=== PATIENT | female | born 1990 | race Caucasian/White ===

== ENCOUNTER 2019-03-26 14:29 | Emergency (ER) | payer OTHER ==
[2019-03-26 14:34] VITALS: BP 103/58; PULSE 68; TEMP 98; BMI 22.6
[2019-03-26] MEDS ORDERED: IBUPROFEN 600 MG TABLET (FP) PO ONE ×2 (14:54→16:14)
[2019-03-26] MEDS ORDERED: DIPHTH,PERTUSS(ACELL),TET 0.5 ML DISP.SYRIN IM ONE ×2 (14:54→16:14)
--- NOTE | 2019-03-26 15:12 | PDOC ---
History of Present Illness - General Chief Complaint: Bite Stated Complaint: SCRATCH BY CAT Time Seen by Provider: 03/26/19 14:40 History Source: Patient Exam Limitations: Clinical Condition - History of Present Illness Initial Comments: 03/26/19 15:16 Patient with no significant past medical history present with complaint of scratches by cat to right hand while working in the [employer] office this afternoon. 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 Patient report cat is up-to-date on all vaccines. Patient report cat is unknown cat to the clinic. Patient does not recall her last tetanus vaccine. Denies any other symptoms Timing/Duration: reports: just prior to arrival Past History - Past Medical History Allergies/Adverse Reactions: Allergies Allergy/AdvReac Type Severity Reaction Status Date / Time No Known Allergies Allergy Unverified 07/14/15 14:05 Home Medications: Ambulatory Orders Albuterol Sulfate Inhaler - [Ventolin Hfa *Inhaler*] 2 inh IH PRN PRN 01/03/12 Salmeterol/Fluticasone [Advair 100Mcg/50Mcg] 1 inh PO PRN PRN 01/03/12 Ondansetron [Zofran *Odt*] 4 mg SL QID PRN #14 tablet 01/16/12 Ibuprofen [Motrin -] 600 mg PO TID PRN 07/14/15 Methylphenidate HCl 10 mg PO TID 07/14/15 Oxycodone HCl/Acetaminophen [Percocet 5-325 mg Tablet] 1 tab PO Q4H PRN #15 tablet MDD 6 07/14/15 clonazePAM [Klonopin -] 0.5 mg PO BID 07/14/15 Amox-Tr/K Cl [Augmentin - 875Mg Tablet] 1 tab PO BID #14 tablet 03/26/19 Asthma: Yes COPD: No GI Disorders: Yes (gastritis) - Immunization History Td Vaccination: Yes Immunization Up to Date: Yes - Psycho Social/Smoking Cessation Hx Smoking Status: No Smoking History: Never smoked Have you smoked in the past 12 months: No Number of Cigarettes Smoked Daily: 0 Information on smoking cessation initiated: No Hx Alcohol Use: No Drug/Substance Use Hx: No Substance Use Type: Alcohol Review of Systems - Review of Systems Able to Perform ROS?: Yes Is the patient limited Romanian proficient: No Constitutional: No: Malaise, Weakness HEENTM: No: Symptoms Reported Respiratory: No: Symptoms reported Cardiac (ROS): No: Symptoms Reported ABD/GI: No: Symptoms Reported Musculoskeletal: Yes: Symptoms Reported, See HPI, Muscle Pain (right little finger) Integumentary: Yes: Symptoms Reported, See HPI, Bruising (back of right hand) Neurological: No: Symptoms reported, Paresthesia, Tingling, Dizziness All Other Systems: Reviewed and Negative *Physical Exam - Vital Signs Last Vital Signs Temp Pulse Resp BP Pulse Ox 98.0 F 68 18 103/58 L 99 03/26/19 14:32 03/26/19 14:32 03/26/19 14:32 03/26/19 14:32 03/26/19 14:32 - Physical Exam General Appearance: Yes: Nourished, Appropriately Dressed. No: Apparent Distress HEENT: positive: Normal ENT Inspection Respiratory/Chest: negative: Respiratory Distress, Accessory Muscle Use Musculoskeletal: positive: Normal Inspection Extremity: positive: Normal Capillary Refill Integumentary: positive: Normal Color, Other (multiple superficial abrasions to back of right hand. 1cm area of linear superficial laceration to lateral aspect of right 5th finger on distal phalanage with no active bleeding) Neurologic: positive: Fully Oriented, Alert, Normal Mood/Affect, Normal Response , Motor Strength 5/5 Procedures - Laceration/Wound Repair Right Dorsal Hand Wound Length: to 2.5 cm (1cm) Wound Explored: clean, no foreign body present Wound's Depth, Shape: superficial, linear Irrigated w/ Saline: Yes Betadine Prep: Yes Wound Repaired With: Dermabond Sterile Dressing Applied: No Splint Applied: No Sling Applied: No ED Treatment Course - Medications Given in the ED: ED Medications Discontinued Medications Generic Name Dose Route Start Last Admin Trade Name Freq PRN Reason Stop Dose Admin Diphtheria/Tetanus/Acell Pertussis 0.5 ml 03/26/19 14:54 03/26/19 14:56 Boostrix - IM 03/26/19 14:55 0.5 ml .ONCE ONE Administration Ibuprofen 600 mg 03/26/19 14:54 03/26/19 14:57 Motrin - PO 03/26/19 14:55 600 mg ONCE ONE Administration Medical Decision Making - Medical Decision Making 01/16/20 15:18 Patient with no significant past medical history present with complaint of scratches by cat to right hand while working in the [employer] office this afternoon. 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 Patient report cat is up-to-date on all vaccines. Patient report cat is unknown cat to the clinic. Patient does not recall her last tetanus vaccine. Denies any other symptoms Exam significant for multiple superficial abrasions to dorsal aspect of right hand with 1 cm linear laceration to lateral aspect of right fifth finger with no bleeding. Wound cleaned with Betadine and closed with Dermabond. Bacitracin applied to wounds and abrasions. Wound covered with adhesive bandage. Tetanus vaccine given by nurse. Motrin 600 mg p.o. ordered for pain. Patient stable for discharge on Augmentin antibiotics for a week for infection prophylaxis with advised to apply bacitracin twice a day to wound until healed. Patient stable for discharge Discharge - Discharge Information Problems reviewed: Yes Clinical Impression/Diagnosis: Cat scratch of right hand Qualifiers: Encounter type: initial encounter Qualified Code(s): S60.511A - Abrasion of right hand, initial encounter; W55.03XA - Scratched by cat, initial encounter Laceration of right little finger w/o foreign body w/o damage to nail Qualifiers: Encounter type: initial encounter Qualified Code(s): S61.216A - Laceration without foreign body of right little finger without damage to nail, initial encounter Condition: Stable Disposition: HOME - Admission No - Additional Discharge Information Prescriptions: Amox-Tr/K Cl [Augmentin - 875Mg Tablet] 1 tab PO BID #14 tablet - Follow up/Referral - Patient Discharge Instructions Patient Printed Discharge Instructions: DI for Cat Scratch Disease/Fever Additional Instructions: Take prescribed antibiotics and finish it. You were given tetanus vaccine today. Watch the carbs for any change in behavior including symptoms of rabies and report back for possible rabies vaccination after symptoms occur. Apply bacitracin to wound twice a day until healed. Take Motrin as needed for pain - Post Discharge Activity Work/Back to School Note: Back to Work
== END 2019-03-26 15:35 | disposition home or self-care (01) ==
LOC: JERFT 14:29
PROC: 3E0234Z Introduction of Serum, Toxoid and Vaccine into Muscle, Percutaneous Approach (ICD-10-PCS; principal; 2019-03-26)
DX: S61.216A Laceration without foreign body of right little finger without damage to nail, initial encounter (principal); S60.511A Abrasion of right hand, initial encounter; W55.03XA Scratched by cat, initial encounter; Y93.K9 Activity, other involving animal care; Y92.538 Other ambulatory health services establishments as the place of occurrence of the external cause; Y99.0 Civilian activity done for income or pay
CPT/HCPCS: 90715; 99282-25